=== PATIENT | male | born 2000 | race Caucasian/White ===

== ENCOUNTER 2023-10-06 17:08 | Emergency (ER) | payer OTHER, SELFPAY ==
--- NOTE | ~2023-10-06 | XR_ITS ---
EXAM: XR hand RT min 3V DATE: 10/06/2023 17:30 HISTORY: punched wall . COMPARISON: None available. FINDINGS: Normal mineralization. Mildly comminuted fracture of the distal right fifth metacarpal wit h significant anterior angulation. A subtle fourth metacarpal distal shaft fracture is also suspected , given mild anterior angulation of the fourth metacarpal head. No lytic or blastic lesion. Joint spa bryan are maintained. No erosion or periosteal change. Soft tissues within normal limits. IMPRESSION: Right mid fourth and fifth fifth metacarpal boxer's type fractures with significant anter ior angulation of the fifth metacarpal fracture. Reviewed, dictated and finalized at location K. RAL OFFICE OPERATOR IMPRESSION: Right mid fourth and fifth fifth metacarpal boxer's type fractures with significant anterior angulation of the fifth metacarpal fracture.
[2023-10-06 17:10] VITALS: BP 129/66; PULSE 71; RESP 16; TEMP 36.1; O2SAT 100
--- NOTE | 2023-10-06 17:31 | ED.UPPEXIN ---
HPI - Extremity Injury (Upper) General Chief Complaint: Extremity Injury, Upper Stated Complaint: broke my hand Time Seen by Provider: 10/06/23 17:22 History of Present Illness HPI narrative: 23-year-old male reports for evaluation for right 4th and 5th metatarsal pain after he punched a wall last night while drinking. Patient states he punched a concrete bathroom wall last night while he was intoxicated and he immediately broke his hand, however did not want to come to the ED until he sobered up. He denies wrist pain, forearm pain, shoulder pain or finger pain. He does have an obvious deformity to his right 5th PIP but states this is from a prior injury when he was younger. He denies pain to this area. States he took ibuprofen this morning with some relief. Related Data Allergies Allergy/AdvReac Type Severity Reaction Status Date / Time No Known Allergies Allergy Verified 10/06/23 17:34 Review of Systems Review of Systems: CONSTITUTIONAL: Denies fever, chills, or sweats. EYES: Denies visual changes, redness, or discharge. ENT: Denies rhinorrhea, congestion, sore throat, or otalgia. CARDIOVASCULAR: Denies chest pain, palpitations, or edema. RESPIRATORY: Denies cough or dyspnea. GASTROINTESTINAL: Denies abdominal pain, nausea, vomiting, or diarrhea. GENITOURINARY: Denies dysuria or hematuria. SKIN: Denies rash or itching. MUSCULOSKELETAL: See HPI NEUROLOGIC: Denies headache, numbness, or weakness. PSYCHIATRIC: Denies anxiety or depression. Exam Narrative: GENERAL: Well-appearing, well-nourished, and in no acute distress. HEAD: Normocephalic, atraumatic. NECK: Supple. CHEST: Clear to auscultation. No respiratory distress. HEART: Regular rate and rhythm. No murmur heard. Normal peripheral pulses. EXTREMITIES: RUE: Tenderness and edema to the 4th and 5th metacarpals. No tenderness to 1-3rd metacarpals. No tenderness to fingers. Obvious deformity to 4th DIP without tenderness or edema (pt states this is old injury). No tenderness to the radius or ulna. No scaphoid tenderness. Full flexion and extension of all fingers. Cap refill less than 2 throughout. Radial pulse 2 +. Sensation intact throughout. No tenderness remainder of forearm, elbow or shoulder. no overlying abrasions, lacerations or other compromise of the skin. Compartments soft. SKIN: Warm, dry, no rash. NEURO: No focal deficits. Alert and oriented x3 Course Vital Signs Vital signs: Vital Signs Temperature 97.0 F L 10/06/23 17:10 Pulse Rate 71 10/06/23 17:10 Respiratory Rate 16 10/06/23 17:10 Blood Pressure 129/66 10/06/23 17:10 Pulse Oximetry 100 10/06/23 17:10 Temperature 97.0 F L 10/06/23 17:10 Pulse Rate 71 10/06/23 18:23 Respiratory Rate 18 10/06/23 18:23 Blood Pressure 129/66 10/06/23 17:10 Pulse Oximetry 100 10/06/23 18:23 MDM - Extremity Injury (Upper) MDM Narrative Medical decision making narrative: 23-year-old male reports for evaluation for right hand pain after he punched a concrete wall last night. See HPI for further history. Vitals are stable. Exam is significant for the above. Compartment soft. He is neurovascularly intact. X-rays obtained show right mid 4th and 5th metacarpal boxer's type fractures with significant anterior angulation of the 5th metacarpal fracture. Imaging discussed with the patient in orthopedist on-call, Dr. Hsu, agrees to follow-up with the patient outpatient. Referral provided. Patient placed in a ulnar gutter splint provided with a sling. Exam of the patient after the splint was applied and he remains neurovascularly intact. states he feels much better after immobilization. Encouraged Tylenol ibuprofen and prescribed oxycodone for breakthrough pain. Encouraged RICE. Strict ED return precautions discussed. He is agreeable with the plan verbalized understanding. Discharged in stable condition. Discharge Plan Discharge Clinical Impression: Closed fr
[2023-10-06] MEDS: IBUPROFEN 600 MG TABLET PO (17:34)
[2023-10-06] MEDS: HYDROcodone/acetaminophen (*CRX) 5-325 MG TABLET 1 TAB PO (17:35)
[2023-10-06 18:23] VITALS: PULSE 71; RESP 18; O2SAT 100
== END 2023-10-06 18:25 | disposition home or self-care (01) ==
PROVIDERS: Emergency Provider Physician Assistant
DX: S62.354A Nondisplaced fracture of shaft of fourth metacarpal bone, right hand, initial encounter for closed fracture (principal); S62.356A Nondisplaced fracture of shaft of fifth metacarpal bone, right hand, initial encounter for closed fracture; W22.09XA Striking against other stationary object, initial encounter
CPT/HCPCS: 29125; 73130; 99283; 99284; A4565; A9270

== ENCOUNTER 2023-10-10 03:08 | Day surgery (SDC) | payer OTHER, SELFPAY ==
[2023-10-09 08:20] VITALS: BMI 21.2
--- NOTE | 2023-10-09 08:24 | PC.NURSE ---
Report to the Outpatient Waiting Room, entrance under the green pavilion located off [facility], at time 1130 on date 10/10/23. Planned Procedure Time: 1330. Time changes happen often and if your time is changed the preop area will call you the afternoon before. - You and your visitor will be asked to self-screen and do not enter if you have any COVID symptoms. - A mask is optional within the hospital at this time. - No food from midnight until time of surgery. MAY HAVE UP TO 20 OZ CLEAR LIQUIDS UNTIL 8 HOURS PRIOR TO PROCEDURE (0530). Take the following medications with a SIP of water the morning of surgery: OXYCODONE DO NOT STOP ANY OF YOUR OTHER PRESCRIPTION MEDICATIONS PRIOR TO SURGERY ?EXCEPT THE FOLLOWING Medications to discontinue per physician: IBUPROFEN Date to take last dose: PER DR. LANDIS Please no make-up, nail bengali, hairspray, perfume, deodorant, or body powder the day of surgery. No jewelry (including any body piercings) or valuables the day of surgery, leave them at home. Please take a shower or bath the night before, or the morning of, surgery with an antibacterial soap. Wear comfortable, loose fitting clothing. - Jewelry must be removed prior to entering the operating room. Rings and piercings that are not removed may be cut off. - The hospital will not accept responsibility for valuables. - Please leave all valuables, including medications, at home the day of surgery. If you are going home after surgery, a licensed industrial truck driver must drive you home. - NO public transportation without another adult if you receive anesthesia. - We recommend that an adult stay with you for 24 hours following discharge. - We also recommend that you do not drive, make important decision, drink alcoholic beverages, or take any drugs that were not prescribed by your health care provider for at least 24 hours after your discharge time. Follow any additional instructions given to you from your surgeon. If you or anyone in your household have experienced Covid symptoms in the past week, please notify your surgeon or the nurse liaison at the phone number below for possible testing. Telephone instructions given to PT - MANASA FLOREZ and asked if any additional questions and then verbalized understanding. Patient advised to call surgeon office or pre surgery nurse liaison [phone] if any additional questions.
[2023-10-10] VITALS (8 sets, daily range): BP systolic 86–119; BP diastolic 52–81; PULSE 46–78; RESP 10–18; TEMP 36.4; O2SAT 95–100
--- NOTE | ~2023-10-10 | XR_ITS ---
XR surgery orthopedic Indication: Closed reduction/pinning right fifth finger TECHNIQUE: Fluoroscopy used during Closed reduction/pinning right fifth finger performed by [Laila Busch MD] on 10/10/2020. 1 minute 15 seconds with 2 fluoroscopic images captured. FINDINGS: Correlate with procedure note. IMPRESSION: Fluoroscopy used during Closed reduction/pinning right fifth finger. Reviewed, dictated and finalized at location L. SPRINKLER DESIGNER IMPRESSION: Fluoroscopy used during Closed reduction/pinning right fifth finger .
--- NOTE | 2023-10-10 12:48 | P.OP_ITS ---
Procedure Note - Detailed Date of Procedure 10/10/23 Pre-op Diagnosis right 5th metacarpal fracture Post-op Diagnosis Same Procedure Performed closed reduction and pinning right 5th metacarpal fracture Surgeon Christina Busch MD Napping Machine Operator jolanta nicole pa-c Anesthesia MAC Description of Procedure INFORMED CONSENT:The patient was seen and examined and marked in the pre-op area.? The patient signed the consent form. PROCEDURE IN DETAIL: The patient taken back to OR on the stretcher in supine position. Time out performed with anesthesia, surgeon and staff agreeing on patient's name site and surgery to be performed SCDs were placed on the lower extremities and inflated A tourniquet was placed on right upper extremity and antibiotics given IV After anesthesia administered sedation I injected {5 }cc 1%lido with epi and 0.5% marcaine plain for local anesthesia The?right upper extremity?was prepped and draped in sterile fashion the??right upper extremity was??exsanguinated with Esmarch bandage and tourniquet inflated to 250mmHg The mini c-arm was draped and brought into the field. 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 I proceeded with placing two 0.045 k-wires in retrograde fashion down the metacarpal. K-wire placement was evaluated on multiple views of fluoro noting improved reduction and stability though still volar angulation of the metacarpal head given previous malunion. There was no scissoring of the digit and pipj and dipjs were mobile. The fourth metacarpal fracture was stable in alignment and no further intervention other than splinting indicated. The pins were trimmed and dressed with chlorhexidine swabs and an ulnar gutter splint was applied a fter the tourniquet was let down noting the finger was warm and well perfused. The patient was awaken from anesthesia and transferred to recovery in stable condition Complications - none EBL- 0cc Disposition - home in stable conditions Jolanta Nicole PA-C was essential for positioning, fluoro, instrumentation and dressing placement. [facility] Billing Surgery - Charge Forward: Surgery Billing ([id number] and [id number],59. same for jolanta with modifier )
--- NOTE | 2023-10-10 12:48 | WPDHPUPDATE1 ---
History and Physical Update Update Date/Time: 10/10/23 12:48 Patient seen and examined in pre-operative holding area. No interval change in medical history or symptoms. Patient recalls previous discussion of benefits and alternatives to procedure. Continues to desire to proceed with closed possible open reduction and pinning right fifth possible fourth metacarpal fracture . Reviewed procedure, post-op expectations and risks including but not limited to bleeding, infection, injury to tendon/nerve/vessel, decreased hand function, stiffness, RSD, no change or worsening of symptoms, malunion, nonunion. I discussed the possible use of assistants and their participation in the case. Patient stated understanding and signed the consent form wishing to proceed.
--- NOTE | 2023-10-10 13:21 | P.PNAN_ITS ---
Anes - Initial Pre Proc Eval Procedure: Operation Date: 10/10/23 13:30 Proposed Procedures p Closed, Possible Open Reduction and Pinning Right Fifth, Possible Fourth Metacarpal - Christina Busch MD Date/Time: 10/10/23 13:21 Surgeon: Christina Busch MD Pre Op Diagnosis: fx right hand Patient Data Age: 23 Gender: M Height: 1.79 m Weight: 65.9 kg Last Vital Signs Temp 97.6 F 10/10/23 11:09 Pulse 56 L 10/10/23 11:09 Resp 18 10/10/23 11:09 BP 119/64 10/10/23 11:09 Pulse Ox 99 10/10/23 11:09 O2 Del Method Room Air 10/10/23 11:09 Allergies Allergy/AdvReac Type Severity Reaction Status Date / Time No Known Allergies Allergy Verified 10/10/23 11:42 Home Medications Medication Instructions Recorded Confirmed Type ibuprofen 600 mg tablet 600 mg PO TID 10/09/23 10/10/23 History cephalexin 500 mg capsule 500 mg PO Q8H #21 caps 10/10/23 Rx hydrocodone 5 mg-acetaminophen 325 1 tablet PO Q6H PRN pain #16 tabs 10/10/23 Rx mg tablet Patient hx anesthesia problems: none Family hx anesthesia problems: none Results Review: All pre-operative results and documents have been reviewed as part of the pre- operative evaluation. [facility] Social History Social History Smoking status: Never smoker Alcohol intake: current Alcohol use details: RARE Substance use: current Substance use type: marijuana Living arrangements: with family Spiritual care concerns: No Anes - Eval Final PreProcedure Day of Procedure 10/10/23 13:21 Patient weight: normal Heart: regular rate and rhythm Lungs: clear to auscultation Airway: Mallampati scale class II Neurological: alert and oriented Last oral intake: >/= 8 hours ASA classification: II Emergent: no Anesthetic plan: proceed Anesthesia type and monitoring: general LMA and standard monitoring Results Review: All pre-operative results and documents have been reviewed as part of the pre- operative evaluation. Informed Consent: The patient's anesthetic plan and its attendant risks and benefits were discussed with the patient/family/POA. Questions were solicited and answers provided to the satisfaction of the patient/family/POA.
[2023-10-10] MEDS: ceFAZolin 2 GM/D5W 50 ML 2 GM/50 ML BAG IVPB (13:32)
[2023-10-10] MEDS: LACTATED RINGERS 1,000 ML 30 ML IV CONT ×2 (14:14→15:06)
[2023-10-10] MEDS: BUPivacaine HCL 0.5% PF 30 ML VIAL INFILTRATE (14:39)
[2023-10-10] MEDS: fentaNYL CITRATE INJ (*CRX) 100 MCG/2 ML VIAL 25 MCG IV PUSH ×6 (14:55→15:10)
[2023-10-10] MEDS: ONDANSETRON INJ 4 MG/2 ML VIAL IV PUSH (15:28)
== END 2023-10-10 16:00 | disposition home or self-care (01) ==
PROVIDERS: Visit Provider Plastic Surgery
PROC: (CPT 26608; principal; 2023-10-10 13:30)
DX: S62.336A Displaced fracture of neck of fifth metacarpal bone, right hand, initial encounter for closed fracture (principal); W22.01XA Walked into wall, initial encounter
CPT/HCPCS: 26608; 99199; A9270; C1713; J0690; J1100; J2250; J2405; J2704; J3010; J7120

== ENCOUNTER 2023-10-23 09:53 | Outpatient (CLI) | payer OTHER, SELFPAY ==
--- NOTE | ~2023-10-23 | XR_ITS ---
EXAMINATION: XR hand RT min 3V INDICATION: Right fifth metacarpal fracture follow-up TECHNIQUE: Three views of the right hand are obtained. COMPARISON: 10/06/2023 FINDINGS: There has been interval percutaneous pinning of the previously described right fifth metaca rpal fracture. The distal fracture fragment demonstrates approximately one cortical width of palmar d isplacement. A splint has been applied. No definite calcified callus is appreciated at the fracture s ite. The previously suspected fourth metacarpal fracture is not well demonstrated.. The joint spaces are unremarkable. IMPRESSION: 1. Interval percutaneous pinning of the previously described right fifth metacarpal fracture. Reviewed, dictated and finalized at location B. COILING MACHINE OPERATOR IMPRESSION: 1. Interval percutaneous pinning of the previously described right fifth metaca rpal fracture.
== END 2023-10-23 09:54 | disposition home or self-care (01) ==
PROVIDERS: Visit Provider Physician Assistant Surgical
DX: S62.306A Unspecified fracture of fifth metacarpal bone, right hand, initial encounter for closed fracture (principal); Z96.698 Presence of other orthopedic joint implants
CPT/HCPCS: 73130

== ENCOUNTER 2023-11-12 10:21 | Outpatient (CLI) | payer OTHER, SELFPAY ==
--- NOTE | ~2023-11-12 | XR_ITS ---
Right Hand Technique: PA, oblique, and lateral views were obtained. Clinical History: Status post pin removal COMPARISON: 11/12/2023 at 10:35 AM Findings: The patient is status post interval removal of the orthopedic pins with the fifth digit. Victor bacute partially healed fracture of the fifth metacarpal neck is present. Osseous alignment is unchan ged. Remaining osseous structures are intact. Joint spaces are preserved. Soft tissues are unremarkab le. Impression: Status post removal of orthopedic pins from the fifth digit. Subacute healing fifth metacarpal fractu re is again present. Reviewed, dictated and finalized at location . INCLUSION TEACHER Impression: Status post removal of orthopedic pins from the fifth digit. Subacute healing f ifth metacarpal fracture is again present.
--- NOTE | ~2023-11-12 | XR_ITS ---
Right Hand Technique: PA, oblique, and lateral views were obtained. Clinical History: Fracture follow-up COMPARISON: 10/23/2023 Findings: 2 percutaneous pins are again present transfixing fracture the distal fifth metacarpal. The re is persistent volar regulation at the fracture site. Joint spaces are preserved. Soft tissues are unremarkable. Impression: 2 orthopedic pins transfixing distal fifth metacarpal fracture, with volar angulation. Reviewed, dictated and finalized at location M. RUMENT REPAIR SPECIALIST Impression: 2 orthopedic pins transfixing distal fifth metacarpal fracture, with volar angu lation.
== END 2023-11-12 10:22 | disposition home or self-care (01) ==
PROVIDERS: Visit Provider Physician Assistant Surgical
DX: S62.309A Unspecified fracture of unspecified metacarpal bone, initial encounter for closed fracture (principal); X58.XXXA Exposure to other specified factors, initial encounter
CPT/HCPCS: 73130

== ENCOUNTER 2024-02-25 10:50 | Emergency (ER) | payer OTHER, SELFPAY ==
[2024-02-25 10:57] VITALS: BP 138/76; PULSE 67; RESP 18; TEMP 37; O2SAT 99
[2024-02-25 11:08] VITALS: BP 138/76; PULSE 67; RESP 18; TEMP 37; O2SAT 99
--- NOTE | 2024-02-25 11:20 | ED.EAR ---
HPI - Ear Problem General Chief complaint: Ear Stated complaint: ear/left side face pain Time Seen by Provider: 02/25/24 11:20 Source: patient Mode of arrival: ambulatory Limitations: no limitations History of Present Illness HPI Narrative: 23-year-old male presented for complaint left nasal irritation for about 2 days. Symptoms started after inhaling mold particles when pulling up floor board of a car. Also reports some tenderness to the left ear at times. Denies decreased hearing, tinnitus, ear drainage, dizziness, nausea, vomiting, fevers or chills. No treatment captain cannery tender. MD Complaint: ear pain Related Data Home Medications Medication Instructions Recorded Confirmed No Home Medications 02/25/24 02/25/24 Allergies Allergy/AdvReac Type Severity Reaction Status Date / Time No Known Allergies Allergy Verified 02/25/24 11:07 Review of Systems Review of Systems: CONSTITUTIONAL: Denies malaise, chills, or fever. EYES: Denies visual changes, redness, or discharge. ENT: Denies rhinorrhea, congestion, sinus pain, sore throat. Reports ear pain CARDIOVASCULAR: Denies chest pain, palpitations, or edema. RESPIRATORY: Denies cough or dyspnea. GASTROINTESTINAL: Denies abdominal pain, nausea, vomiting, diarrhea SKIN: Denies rash or itching. MUSCULOSKELETAL: Denies myalgia. NEUROLOGIC: Denies headache. All systems reviewed & are unremarkable except as noted in HPI and below PMFSH Social History Social History Smoking status: Never smoker Alcohol intake: current Alcohol use details: RARE Substance use: current Substance use type: marijuana Living arrangements: with family Spiritual care concerns: No Comments At time of signature, agree with nursing past medical, surgical, social and family history. There is no relevant family history pertinent to the presenting complaint Exam Narrative: GENERAL: Well-appearing EYES: PERRLA, conjunctivae clear ENT: Nares clear. Mild tenderness with palpation over left maxilla. Mucous membranes moist. Right TM pearly wright with dull light reflex; left cerumen impaction unable to visualize TM. no tragal tenderness. Oropharynx not erythematous without lesions. Tonsils enlarged without exudate, no drooling, no hoarseness, no trismus, uvula midline. NECK: Supple. No lymphadenopathy CHEST: Clear to auscultation, breath sounds equal. HEART: Regular rate and rhythm. No murmur heard. SKIN: Warm, dry, no rash. NEURO: Alert and oriented x3. PSYCH: Normal mood and affect Course Course Emergency Course: Patient is aware of diagnosis, understands and agrees to treatment plan. Anticipatory guidance given. Patient agrees to follow-up as directed and is aware of reasons to seek care at the emergency department. Portions of this record may have been created with voice recognition software Level of Care: Express Care Visit Vital Signs Vital signs: Vital Signs Temperature 98.6 F 02/25/24 10:57 Pulse Rate 67 02/25/24 10:57 Respiratory Rate 18 02/25/24 10:57 Blood Pressure 138/76 02/25/24 10:57 Pulse Oximetry 99 02/25/24 10:57 Oxygen Delivery Room Air 02/25/24 10:57 Temperature 98.6 F 02/25/24 11:08 Pulse Rate 67 02/25/24 11:08 Respiratory Rate 18 02/25/24 11:08 Blood Pressure 138/76 02/25/24 11:08 Pulse Oximetry 99 02/25/24 11:08 Oxygen Delivery Room Air 02/25/24 11:08 Reviewed Medical Decision Making MDM Narrative Medical decision making narrative: discussed physical exam findings consistent with nasal irritation and cerumen impaction of the left ear. Advised supportive measures and signs/symptoms to go to the ER. Patient is appropriate for outpatient treatment and follow-up. Differential Diagnosis Differential Diagnosis: Coronavirus, strep pharyngitis, allergic rhinitis, upper respiratory tract infection, sinusitis, rhinosinusitis, nasopharyngitis, viral pharyngitis
== END 2024-02-25 11:33 | disposition home or self-care (01) ==
PROVIDERS: Emergency Provider Nurse Practitioner Family; PCP Emergency Medicine
DX: H61.22 Impacted cerumen, left ear (principal); J34.89 Other specified disorders of nose and nasal sinuses
CPT/HCPCS: 99211; G0463

== ENCOUNTER 2024-09-05 19:30 | Emergency (ER) | payer OTHER, SELFPAY ==
[2024-09-05 19:46] VITALS: BP 112/72; PULSE 80; RESP 16; TEMP 36.7; O2SAT 98
--- NOTE | 2024-09-05 21:14 | ED_ITS ---
HPI - Dental/Oral General Chief complaint: Dental/Oral Stated complaint: dental pain; i havent been to the dr in a long merlene Time Seen by Provider: 09/05/24 20:24 Source: patient Mode of arrival: ambulatory Limitations: no limitations History of Present Illness HPI Narrative: this is a 24-year-old male who presents to the ED with chief complaint of dental pain bilaterally but worse on the right. Reports that over the past week right side is really been bothering him. States that he has seen top normal hours and they both seem to be DKA. States that he has not seen a dentist in quite a while. Denies fevers, chills, nausea, vomiting, trismus, drooling, Related Data Allergies Allergy/AdvReac Type Severity Reaction Status Date / Time No Known Allergies Allergy Verified 02/25/24 11:07 Review of Systems Review of Systems: All systems as dictated in [facility] Social History Social History Smoking status: Never smoker Alcohol intake: current Alcohol use details: RARE Substance use: current Substance use type: marijuana Living arrangements: with family Spiritual care concerns: No Exam Narrative: GENERAL: Well-appearing, well-nourished, and in no acute distress. HEAD: Normocephalic, atraumatic. EYES: PERRLA and EOMI. ENT: superior molars bilaterally are decaying. No discrete or focal abscess detected. no trismus or drooling. Floor of the mouth intact. Nares clear, no rhinorrhea or epistaxis. Mucous membranes moist. Oropharynx without tonsillar hypertrophy exudate or other lesions. NECK: Supple. No adenopathy or masses. CHEST: No respiratory distress. Clear to auscultation. No wheezes rales or rhonchi HEART: Regular rate and rhythm. No murmur heard. Normal peripheral pulses. ABDOMEN: Soft, nontender, nondistended, normal active bowel sounds. MSK: Normal range of motion. No edema. SKIN: Warm, dry, no rash. NEURO: Alert and oriented x4. No focal deficits. PSYCH: Normal mood and affect. Course Vital Signs Vital signs: Vital Signs Temperature 98.0 F 09/05/24 19:46 Pulse Rate 80 09/05/24 19:46 Respiratory Rate 16 10/26/24 19:46 Blood Pressure 112/72 10/26/24 19:46 Pulse Oximetry 98 09/05/24 19:46 Temperature 98.1 F 09/05/24 21:22 Pulse Rate 67 09/05/24 21:22 Respiratory Rate 18 09/05/24 21:22 Blood Pressure 120/74 09/05/24 21:22 Pulse Oximetry 98 09/05/24 21:22 MDM - Dental/Oral MDM Narrative Medical decision making narrative: This is a 24 yo male presents to the ED for chief complaint of right-sided dental pain. Vitals are normal. Exam shows multiple areas of dental decay. No evidence of deep space infection on exam. Patient was given dose of oral antibiotic and IM Toradol here. Rx for Toradol and Augmentin given. He is understanding that he needs to follow up with a dentist for his dental pain. Patient will be discharged in stable condition. Supportive measures discussed and return precautions given. Patient is understanding and agreeable with plan for discharge with PCP follow-up. Discharge Plan Discharge Clinical Impression: Dental caries Patient Disposition: Home, Self-Care Condition: Stable Instructions: Antibiotic Form Additional Instructions: Your exam today does show dense decay. Please take antibiotics as prescribed for possible infection. You could use Toradol prescription for pain control. Do not take ibuprofen or other NSAIDs with the Toradol. You can however take Ty lenol as a supplement. If you have any new or worsening symptoms please return to the ER for further evaluation. Prescriptions: New amoxicillin-pot clavulanate 875-125 mg tablet 1 tablet PO Q12H Qty: 14 0RF ketorolac 10 mg tablet 10 mg PO Q8H 4 Days Qty: 12 0RF Follow-up/Referrals: Prasanna Torres MD [Primary Care Provider] - Stand Alone Forms: Work/School Release IP Time of Disposition: 21:18
[2024-09-05 21:22] VITALS: BP 120/74; PULSE 67; RESP 18; TEMP 36.7; O2SAT 98
[2024-09-05] MEDS: KETOROLAC 30 MG/ML VIAL (*BKC) IM (21:28)
[2024-09-05] MEDS: AMOXICILLIN/CLAVULANATE K 875-125 MG TAB 1 TABLET PO (21:29)
== END 2024-09-05 21:42 | disposition home or self-care (01) ==
PROVIDERS: Emergency Provider Physician Assistant; PCP Emergency Medicine
DX: K02.9 Dental caries, unspecified (principal)
CPT/HCPCS: 96372; 99283; A9270; J1885